=== PATIENT | female | born 1975 | race Caucasian/White ===

== ENCOUNTER 2017-03-08 07:12 | Emergency (ER) | payer SELFPAY ==
[~2017-03-08] VITALS: Ht 149.9 cm; Wt 113.6 kg
[2017-03-08 07:16] VITALS: BP 138/87; TEMP 99.3
[2017-03-08] MEDS ORDERED: AMOXICILLIN 50500 MG PO (08:19)
[2017-03-08 08:35] VITALS: PULSE 110
== END 2017-03-08 08:35 | disposition home or self-care (01) ==
LOC: COL.ER 07:12
DX: J02.0 Streptococcal pharyngitis (principal)